=== PATIENT | male | born 1950 | race Caucasian/White ===

== ENCOUNTER 2019-03-08 11:40 | Inpatient (IN) | payer OTHER ==
[~2019-03-08] VITALS: Ht 177.8 cm; Wt 106.6 kg
[2019-03-08] MEDS ORDERED: SIMVASTATIN20 MG PO (12:22)
[2019-03-08] MEDS ORDERED: METFORMI PO (12:23)
== END 2019-03-10 14:46 | disposition home or self-care (01) | DRG 669 ==
LOC: ER 11:40 → SURH 21:06
PROVIDERS: ADMIT Surgery
PROC: 0T5B8ZZ Destruction of Bladder, Via Natural or Artificial Opening Endoscopic (ICD-10-PCS; principal; 2019-03-08)
PROC: 0TCB8ZZ Extirpation of Matter from Bladder, Via Natural or Artificial Opening Endoscopic (ICD-10-PCS; 2019-03-08)
PROC: BW21ZZZ Computerized Tomography (CT Scan) of Abdomen and Pelvis (ICD-10-PCS; 2019-03-08)
DX: T83.098A Other mechanical complication of other urinary catheter, initial encounter (principal); N13.8 Other obstructive and reflux uropathy; D62 Acute posthemorrhagic anemia; R31.0 Gross hematuria; N40.1 Benign prostatic hyperplasia with lower urinary tract symptoms; N32.89 Other specified disorders of bladder; E11.65 Type 2 diabetes mellitus with hyperglycemia; Z79.4 Long term (current) use of insulin